=== PATIENT | female | born 1945 | race Two or more races ===

== ENCOUNTER 2019-07-01 14:04 | Emergency (ER) | payer OTHER ==
[~2019-07-01] VITALS: Ht 160 cm; Wt 70.3 kg
[~2019-07-01 14:04] MED LIST: ABILIFY DIS15 MG/TAB; COZAAR25 MG; CRESTOR10 MG; DICLOFENAC POTA50 MG; DICLOFENAC SODI50 MG PO; KLONOPIN1 MG/TAB; ZOLOFT100 MG; ZOLOFT25 MG
[2019-07-01] MEDS ORDERED: AMANTADINE HCL100 MG (14:22)
[2019-07-01] MEDS ORDERED: ASPIR 8181 MG (14:23)
[2019-07-01] MEDS ORDERED: ATORVASTATIN CA10 MG (14:23)
[2019-07-01] MEDS ORDERED: DIVALPROEX SOD250 MG (14:23)
== END 2019-07-01 16:20 | disposition home or self-care (01) ==
LOC: ER 14:04
DX: M54.5 Low back pain (principal)

== ENCOUNTER 2023-05-29 20:11 | Inpatient (IN) | payer OTHER ==
[~2023-05-29] VITALS: Ht 165.1 cm; Wt 71.2 kg
[~2023-05-29 20:11] MED LIST changes: +AMANTADINE HCL100 MG; +ASPIR 8181 MG; +ATORVASTATIN CA10 MG; +DIVALPROEX SOD250 MG
[2023-05-29] MEDS ORDERED: OLANZAPINE ODT10 MG PO (20:58)
--- NOTE | 2023-05-29 21:01 | NUR ---
PTE ALERTA Y ORIENTADA X3 EN COMPANIA DE FAMILIAR. AL MOENTO DE MEDIR S/V EN TRIAGE HR:[id number] LAT/MIN. SE REALIZA EKG Y SE PRESENTA AL DR. CARDONA EL CUAL FIRMA Y EVALUA EL MISMO. SE UBICA EN CAMA Y SE CONECTA A MONITOR CRADIACO Y SATUROMETRO.
--- NOTE | 2023-05-29 22:07 | NUR ---
SE EDUCA PTE SOBRE EL TX MEDICO Y ESTA REFIERE ENTENDER. SE CANALIZA DE INMEDIATO Y SE ADMINITRA MEDICAMENTOS BAJO SUPERVISION DEL DR. DULCE MORE DE 6 MG DE ADENOSINA PACIENTE CONVIERTE A NSR. SE PABLO MUESTRAS DE LABORATORIO Y SE ENTREGA U/A. PLACA PORTABLE REALZIADA POR PERSONAL DE RADIOLOGIA. SE REALIZA EKG POST CONVERSION
[2023-06-04] MEDS ORDERED: LOPRESSOR25 MG PO (16:16)
[2023-06-04] MEDS ORDERED: BENZONATATE100 MG PO (16:26)
== END 2023-06-04 18:09 | disposition home or self-care (01) | DRG 281 ==
LOC: ER 20:11 → MEDJ 23:19 → ICU 05-30 01:51 → SURH 05-31 16:52 → ICU 05-31 16:53 → MEDJ 05-31 20:27 → SURH 05-31 20:48
PROVIDERS: ADMIT Internal Medicine; ATTEND Internal Medicine
PROC: 4A12X4Z Monitoring of Cardiac Electrical Activity, External Approach (ICD-10-PCS; principal; 2023-05-29)
PROC: B246ZZZ Ultrasonography of Right and Left Heart (ICD-10-PCS; 2023-05-29)
PROC: 3E0F7SF Introduction of Other Gas into Respiratory Tract, Via Natural or Artificial Opening (ICD-10-PCS; 2023-05-29)
PROC: 8E0ZXY6 Isolation (ICD-10-PCS; 2023-05-30)
PROC: BB24ZZZ Computerized Tomography (CT Scan) of Bilateral Lungs (ICD-10-PCS; 2023-05-30)
PROC: 3E0F7GC Introduction of Other Therapeutic Substance into Respiratory Tract, Via Natural or Artificial Opening (ICD-10-PCS; 2023-05-30)
DX: I47.1 Supraventricular tachycardia (principal); I21.A1 Myocardial infarction type 2; B37.49 Other urogenital candidiasis; I24.9 Acute ischemic heart disease, unspecified; E87.1 Hypo-osmolality and hyponatremia; J10.1 Influenza due to other identified influenza virus with other respiratory manifestations; J98.01 Acute bronchospasm; I10 Essential (primary) hypertension

== ENCOUNTER 2023-12-01 09:33 | Emergency (ER) | payer OTHER ==
[~2023-12-01] VITALS: Ht 162.6 cm; Wt 68.0 kg
[~2023-12-01 09:33] MED LIST changes: +ALENDRONATE SOD70 MG; +AMLODIPINE BESYL5 MG PO; +BENZONATATE100 MG PO; +CIPROFLOXACIN500 MG PO; +INTEGRA PLUS C1 EACH PO; +INTESTINEX680 M1 PO; +LOPRESSOR25 MG PO; +METRONIDAZOLE500 MG PO; +OLANZAPINE ODT10 MG PO; +POM (MEDICAMENTO EN PO; +SERTRALINE HCL100 MG PO
[2023-12-01 11:15] LABS: HEMOGLOBIN 12.3 g/dL (12.0-15.00); MEAN CORPUSCULAR HEMOGLOBIN 30.6 pg (27.00-32.0); MEAN CORPUSCULAR HGB CONC 34.1 g/dl (32.0-36.0); PLATELET COUNT 261 K/uL (150-450); RED CELL DISTRIBUTION WIDTH 13.8 % (11.5-14.5)
[2023-12-01 11:48] LABS: CALCIUM 9.7 mg/dL (8.5-10.1); CREATININE SERUM 0.68 mg/dL (0.55-1.02); GFR 83.9; POTASSIUM 3.07 mEq/L (3.5-5.1)
[2023-12-01 16:06] LABS: URINE APPEARANCE Clear; URINE BILIRRUBIN Negative (NEGATIVE); URINE BLOOD Negative; URINE COLOR Dark Yellow; URINE GLUCOSE Negative (NEGATIVE); URINE LEUKOCYTE Small; URINE NITRATE Negative; URINE PROTEIN Trace (NEGATIVE); URINE UROBILINOGEN 0.2 E.U./dl
[2023-12-01 16:09] LABS: URINE BACTERIA 369.1 uL (0.0-1933); URINE EPITHELIAL CELLS 45.4 uL (0.0-38.8); URINE RBC 19.1 uL (0.0-20.8); URINE WBC 21.4 uL (0.0-23.2)
== END 2023-12-01 17:01 | disposition home or self-care (01) ==
LOC: ER 09:33
PROVIDERS: Emergency Medicine
DX: K52.89 Other specified noninfective gastroenteritis and colitis (principal); I10 Essential (primary) hypertension; F32.89 Other specified depressive episodes; K57.30 Diverticulosis of large intestine without perforation or abscess without bleeding
CPT/HCPCS: 36415; 96365; 96366; 99284; J7030

== ENCOUNTER 2024-01-13 07:50 | Day surgery (SDC) | payer OTHER ==
[2024-01-13] MEDS ORDERED: OMEPRAZOLE40 MG PO (14:34)
[2024-01-13] MEDS ORDERED: SUCRALFATE1 GM PO (14:34)
[2024-01-13] MEDS ORDERED: DIPHENHYDRAMINE HCL 50 MG/ML VIAL 1ML IV ONE (15:00)
[2024-01-13] MEDS ORDERED: MIDAZOLAM HCL 2 MG/2 ML VIAL IV ONE (15:00)
[2024-01-13] MEDS ORDERED: fentaNYL CITRATE 50 MCG/ML AMPUL IV ONE (15:00)
[2024-01-13] MEDS ORDERED: NALOXONE HCL 0.4 MG/ML AMPUL IV ONE (15:00)
== END 2024-01-13 15:10 | disposition home or self-care (01) ==
LOC: AMB-ENDOS 07:50
PROVIDERS: ATTEND Surgery
DX: K57.30 Diverticulosis of large intestine without perforation or abscess without bleeding (principal); K63.1 Perforation of intestine (nontraumatic); K65.1 Peritoneal abscess; K64.8 Other hemorrhoids